=== PATIENT | female | born 1990 | race African-American/Black ===

== ENCOUNTER 2016-10-19 19:10 | Inpatient (IN) | payer OTHER ==
[2016-10-19 20:30] VITALS: BMI 30.4
--- NOTE | 2016-10-19 20:54 | HP ---
Past Medical History - Primary Care Physician PCP:: Stephanie Cornejo - Admission Chief Complaint: 26 yrs , 39.5/7 weeks by sono came by ambulence. onset Lp since 2.00pm History of Present Illness: pnc at , [facility] work Up O pos, Hbsag neg, rpr nr, hiv neg, quantiferon neg, Pngt 79, Gc /ct neg, Gbs neg, [id number](4.5%) pos NT screen not done, quad screen neg MFM growth sono reviewed History Source: Patient, Medical Record Limitations to Obtaining History: No Limitations - Past Medical History ADMISSIONS DEAN: No: CVA, Parkinson's Cardiovascular: No: HTN Pulmonary: Yes: Asthma (last rx 06/12/2015) Gastrointestinal: No: Gastritis Renal/: No: UTI ...: 2 ...Para: 0 ...Induced : 1 (2010) ...LMP: 01/15/16 ... Weeks Gestation by Dates: 39.5 ...EDC by Dates: 10/21/16 ...EDC by Sono: 10/22/16 Heme/Onc: Yes: Anemia Infectious Disease: No: AIDS, HIV, STD's Psych: Yes: Bipolar (in past, no meds) - Past Surgical History Past Surgical History: Yes: None Hx Myomectomy: No Hx Transabdominal Cerclage: No - Smoking History Smoking history: Never smoked - Alcohol/Substance Use Hx Alcohol Use: No History of Substance Use: reports: None Home Medications - Allergies Allergies/Adverse Reactions: Allergies Allergy/AdvReac Type Severity Reaction Status Date / Time shellfish derived Allergy Severe Difficulty Verified 10/19/16 21:00 Breathing sesame seed Allergy Mild Verified 10/19/16 20:55 Physical Exam - Maternity Vital Signs: Vital Signs Temperature Pulse Rate 72 10/19/16 20:30 Respiratory Rate 20 10/19/16 20:30 Blood Pressure 134/84 10/19/16 20:30 O2 Sat by Pulse Oximetry (%) Constitutional: Yes: Well Nourished Eyes: Yes: WNL HENT: Yes: WNL, Normocephalic Neck: Yes: WNL Cardiovascular: Yes: WNL, Regular Rate and Rhythm Lungs: Clear to auscultation Breast(s): Yes: WNL - Abdominal Exam/OB Fundal Height: 38 Number of Fetuses: Single Presentation: Vertex Contractions: Yes Regularity: Irregular (3-7 min) Intensity: Mod/Strong Monitor Mode: External Heart Rate (range): 130 Heart Rate Location: [facility] Category: I Accelerations: Uniform Decelerations: None - Vaginal Exam/OB Vaginal Bleediing: Bloody Show Dilatation (cm): 4-5 Effacement (%): 90 Amniotic Membrane Status: Intact Presentation: Vertex/Position Station: -2 (-2/-1) - Physical Exam Musculoskeletal: Yes: WNL Extremities: Yes: WNL. No: Calf Tenderness Edema: Yes Edema: LLE: 1+, RLE: 1+ Integumentary: Yes: WNL Deep Tendon Reflex Grade: Normal +2 ...Motor Strength: WNL Psychiatric: Yes: WNL, Alert, Oriented - Labs Lab Results: Laboratory Tests 10/19/16 10/19/16 10/19/16 20:10 20:10 20:10 WBC 9.8 Hgb 13.1 Hct 38.8 Plt Count 109 L Neutrophils % 74.9 Lymphocytes % 12.8 Monocytes % 10.3 H Eosinophils % 1.8 INR 0.88 PTT (Actin FS) 27.0 Sodium 138 Potassium 3.7 Chloride 103 Carbon Dioxide 26 BUN 11 Creatinine 0.8 Random Glucose 71 L Calcium 8.7 Problem List - Problems (1) with 39 completed weeks gestation Code(s): Z3A.39 - 39 WEEKS GESTATION OF (2) Labor established Code(s): EDV1077 - Assessment/Plan 26 yrs , 39.5/7 weeks , iup admitted in labor. Gbs neg plan stadol for labor analgesia prn pitocin augmentation prn vaginal delivery trial
[2016-10-19] MEDS ORDERED: BUTORPHANOL TARTRATE 1 MG/ML VIAL IVPB ONE (20:59)
[2016-10-19] MEDS ORDERED: DEXTROSE 5%-LACTATED RINGERS 1,000 ML IV SCH (21:00)
[2016-10-19] MEDS ORDERED: SODIUM PHOSPHATE/NA BIPHOS 133 ML ENEMA PR ONE (21:01)
[2016-10-19 21:13] LABS: BASOPHIL 0.2 % (0-2.0); EOSINOPHIL 1.8 % (0-4.5); MCH 33.3 pg (25.7-33.7); MCHC 33.7 g/dl (32.0-36.0); MEAN CELL VOLUME 98.9 fl (80-96); MEAN PLT VOLUME 12.1 fl (7.5-11.1); NEUTROPHILS 74.9 % (42.8-82.8); PLATELET COUNT 109 K/MM3 (134-434); RDW 12.8 % (11.6-15.6); WHITE BLOOD COUNT 9.8 K/mm3 (4.0-10.0)
[2016-10-19 21:29] LABS: INR 0.88 (0.82-1.09); PROTHROMBIN TIME (PATIENT) 9.7 SEC (9.98-11.88)
[2016-10-19 21:33] LABS: CALCIUM 8.7 mg/dL (8.5-10.1); COCKROFT - GAULT 152.609; CREATININE 0.8 mg/dL (0.55-1.02)
--- NOTE | 2016-10-19 22:42 | PN ---
Progress Note (short form) - Note Progress Note: pt received iv stadol at 10.00pm uc are irreguar, dysfunctional 2-7 min . Fhr 120-130 cat-1 Selected Entries 10/19/16 22:00 Temperature 98.2 F Pulse Rate 62 Blood Pressure 130/62 Pitocin augmentatio Problem List - Problems (1) with 39 completed weeks gestation Code(s): Z3A.39 - 39 WEEKS GESTATION OF (2) Labor established Code(s): MJN8183 -
[2016-10-19] MEDS ORDERED: OXYTOCIN 15 UNITS/ LR 250 ML 250 ML IVPB SCH (22:45)
--- NOTE | 2016-10-20 00:39 | PN ---
Progress Note, Labor Vaginal Exam #1 Labor Exam Date: 10/20/16 Labor Exam Time: 00:30 Heart Rate (range): 120 Dilatation: 8-9 Effacement (%): 100 Amniotic Membrane Status: Intact Presentation: Vertex/Position Station: 0 (0/+1) Remarks: fhr cat-1 Uc 2-4 min pitocin 2 ml/hr Selected Entries 10/19/16 22:00 Temperature 98.2 F Pulse Rate 62 Blood Pressure 130/62 Vaginal Exam #2 Labor Exam Date: 10/20/16 Labor Exam Time: 02:25 Heart Rate (range): 120 Dilatation: 10 Effacement (%): 100 Amniotic Membrane Status: Ruptured (AROM clear , small aount) Presentation: Vertex/Position Station: +2 Remarks: fhr cat-1 uc 2-4 min pt does not have urge to push wait for passive descent before encouraging her to push. 3.00am pt wants to push 10/20/16 02:00 Temperature 98.0 F Pulse Rate 66 Blood Pressure 132/78
[2016-10-20] MEDS ORDERED: BUTORPHANOL TARTRATE 1 MG/ML VIAL IVPUSH PRN (00:52)
[2016-10-20] MEDS ORDERED: BENZOCAINE 28 GM HEMORRHOIDAL OINTMENT TP PRN (04:43)
[2016-10-20] MEDS ORDERED: BENZOCAINE 20% 57 GM BOTTLE TP PRN (04:43)
[2016-10-20] MEDS ORDERED: WITCH HAZEL 50% (TUCKS) 40 PAD/JAR PAD TP PRN (04:43)
[2016-10-20] MEDS ORDERED: METHYLERGONOVINE MALEATE 0.2 MG/1 ML AMP IM PRN (04:43)
[2016-10-20] MEDS ORDERED: BISACODYL 10 MG SUPP.RECT RC PRN (04:43)
[2016-10-20] MEDS ORDERED: oxyCODONE HCL 5 MG TABLET PO PRN (04:43)
--- NOTE | 2016-10-20 04:43 | PN ---
Delivery - Delivery Vaginal Delivery: No Problems, Spontaneous Type of Anesthesia: Local Episiotomy/Laceration: Midline (episiotomy was sutured in layers with chr catgut #2/0 . pr exam mucosa & sphincter was intact bladder cathetrized & emptied) EBL (cc): 300 Delivery, Single - Stages of Labor Date 1st Stage Initiatied: 10/19/16 Time 1st Stage Initiated: 14:00 Date 2nd Stage Initiated: 10/20/16 Time 2nd Stage Initiated: 02:15 Date of Delivery: 10/20/16 Time of Delivery: 03:20 Time Placenta Delivered: 03:25 Placenta: Yes: Spontaneous, Uterine Exploration - Condition of Insecticide Mixer/Mutuel Clerk Present: [place]: Timoteo Maher Infant Gender: Male Weight: 7 lb 9 oz Position: Right, OA Total Hours ROM (Hrs/Mins): 1 hr. 10mins. - 1 Minute Total Score: 9 5 Minutes Total Score: 9 - [place] Feeding Plan Initial Plan: Elected not to breastfeed exclusively throughout hospitalization Remarks - Remarks Remarks: 26 yrs 39.6/7 weeks admitted in labor pnc at [address] [place] [address] gbs neg Iv stadol was given twice for labor analgesia Pitocin augmentation was also given intrapartum course was uneventful.
[2016-10-20] MEDS ORDERED: D5W-LR W/ 20 UNITS OXYTOCIN 1,000 ML IV SCH (04:45)
[2016-10-20] MEDS: ACETAMINOPHEN 325 MG TABLET (FP) PO PRN ×2 (06:40→16:39)
[2016-10-20] MEDS: IBUPROFEN 600 MG TABLET (FP) PO PRN ×2 (06:41→16:40)
[2016-10-20] MEDS: PRENATAL VITAMINS W/ FOLIC ACID TABLET (FP) PO SCH (09:14)
[2016-10-20] MEDS: FERROUS SO4 325 MG TABLET (FP) PO SCH ×2 (09:14→17:22)
[2016-10-20] MEDS ORDERED: PNEUMOC 13-VAL CONJ-DIP CRM/PF 0.5 ML DISP.SYRIN IM ONE (22:00)
--- NOTE | 2016-10-21 05:53 | PN ---
Post Progress Note Post Day: 1 Type of Delivery: Vital Signs: Vital Signs Temperature 98.5 F 10/21/16 02:00 Pulse Rate 69 10/21/16 02:00 Respiratory Rate 20 10/21/16 02:00 Blood Pressure 124/75 10/21/16 02:00 O2 Sat by Pulse Oximetry (%) 100 10/20/16 04:00 Breast Exam: Yes: Soft Uterus: Yes: Fundus Firm Incision: Yes: Dressing dry and intact Abdomen/GI: Yes: Abdomen soft Lochia: Yes: Rubra Lochia, amount: Small Extremities: Yes: Calves non-tender Perineum: Yes: Intact Activity: Ambulating - Labs Labs: CBC WBC 9.8 K/mm3 (4.0-10.0) 10/19/16 20:10 RBC 3.92 M/mm3 (3.60-5.2) 10/19/16 20:10 Hgb 13.1 GM/dL (10.7-15.3) 10/19/16 20:10 Hct 38.8 % (32.4-45.2) 10/19/16 20:10 MCV 98.9 fl (80-96) H 10/19/16 20:10 MCHC 33.7 g/dl (32.0-36.0) 10/19/16 20:10 RDW 12.8 % (11.6-15.6) 10/19/16 20:10 Plt Count 109 K/MM3 (134-434) L 10/19/16 20:10 MPV 12.1 fl (7.5-11.1) H 10/19/16 20:10 Neutrophils % 74.9 % (42.8-82.8) 10/19/16 20:10 Lymphocytes % 12.8 % (8-40) 10/19/16 20:10 Monocytes % 10.3 % (3.8-10.2) H 10/19/16 20:10 Eosinophils % 1.8 % (0-4.5) 10/19/16 20:10 Basophils % 0.2 % (0-2.0) 10/19/16 20:10 Assessment/Plan as above reg diet oob continue care
[2016-10-21 08:30] LABS: BASOPHIL 0.3 % (0-2.0); EOSINOPHIL 2.6 % (0-4.5); MCH 33.8 pg (25.7-33.7); MCHC 34.4 g/dl (32.0-36.0); MEAN CELL VOLUME 98.4 fl (80-96); MEAN PLT VOLUME 10.4 fl (7.5-11.1); NEUTROPHILS 72.8 % (42.8-82.8); PLATELET COUNT 98 K/MM3 (134-434); RDW 12.9 % (11.6-15.6); WHITE BLOOD COUNT 11.6 K/mm3 (4.0-10.0)
[2016-10-21] MEDS: FERROUS SO4 325 MG TABLET (FP) PO SCH ×2 (08:37→17:14)
[2016-10-21] MEDS: ACETAMINOPHEN 325 MG TABLET (FP) PO PRN ×2 (08:38→21:06)
[2016-10-21] MEDS: PRENATAL VITAMINS W/ FOLIC ACID TABLET (FP) PO SCH (09:18)
[2016-10-21] MEDS ORDERED: PNEUMOCOCCAL 23 VACCINE 0.5 ML VIAL IM ONE (10:00)
[2016-10-21] MEDS ORDERED: DIPHTH,PERTUSS(ACELL),TET 0.5 ML DISP.SYRIN IM ONE (10:00)
--- NOTE | 2016-10-21 12:36 | DS ---
Physical Exam-AUTOMOBILE REPOSSESSOR Vital Signs: Vital Signs Temperature 97.8 F 10/21/16 10:00 Pulse Rate 73 10/21/16 10:00 Respiratory Rate 18 10/21/16 10:00 Blood Pressure 125/81 10/21/16 10:00 O2 Sat by Pulse Oximetry (%) 100 10/20/16 04:00 Constitutional: Yes: Well Nourished Eyes: Yes: WNL HENT: Yes: WNL Neck: Yes: WNL Cardiovascular: Yes: WNL Respiratory: Yes: WNL Gastrointestinal: Yes: WNL ...Rectal Exam: Yes: WNL Renal/: Yes: WNL ....Post : Yes: Uterus firm, Uterus non-tender, Moderate lochia rubra ( episiotomy healing well) Breast(s): Yes: WNL (BF, not engorged) Musculoskeletal: Yes: WNL Extremities: Yes: WNL. No: Calf Tenderness Edema: No Integumentary: Yes: WNL Neurological: Yes: WNL, Alert, Oriented ...Motor Strength: WNL Psychiatric: Yes: WNL Labs: CBC, BMP 10/21/16 08:00 10/19/16 20:10 Delivery - Delivery Vaginal Delivery: No Problems, Spontaneous Type of Anesthesia: Local Episiotomy/Laceration: Midline (episiotomy was sutured in layers with chr catgut #2/0 . pr exam mucosa & sphincter was intact bladder cathetrized & emptied) EBL (cc): 300 Delivery, Single - Stages of Labor Date 1st Stage Initiatied: 10/19/16 Time 1st Stage Initiated: 14:00 Date 2nd Stage Initiated: 10/20/16 Time 2nd Stage Initiated: 02:15 Date of Delivery: 10/20/16 Time of Delivery: 03:20 Time Placenta Delivered: 03:25 Placenta: Yes: Spontaneous, Uterine Exploration - Condition of Agricultural Equipment Design Engineer/Recruiting Consultant Present: [place]: Timoteo Maher Gender: Male Weight: 7 lb 9 oz Position: Right, OA Total Hours ROM (Hrs/Mins): 1 hr. 10mins. - 1 Minute Total Score: 9 5 Minutes Total Score: 9 - [place] Feeding Plan Initial Plan: Elected not to breastfeed exclusively throughout hospitalization Remarks - Remarks Remarks: 26 yrs 39.6/7 weeks admitted in labor pnc at [address] [place] [address] gbs neg Iv stadol was given twice for labor analgesia Pitocin augmentation was also given intrapartum course was uneventful. pp course uneventful. pt will be discharged on 10/22/16 Discharge Summary Current Active Problems Labor established (Acute) Normal spontaneous vaginal delivery (Acute) with 39 completed weeks gestation (Acute) Condition: Stable - Instructions Diet, Activity, Other Instructions: Post Instructions DIET: Continue good diet high in protein, calcium, and iron rich foods. Drink at least eight (8) glasses of water daily in addition to other fluids. ct Regular diet _ MEDICATIONS: Continue vitamins and iron as previously directed. Motrin and Tylenol may be taken for minor discomfort. ACTIVITY: Mild to moderate exercise may be started in two (2) weeks. Take frequent rest periods. Resume normal activity after six (6) week check up. WOUND CARE OF OPERATIVE SITE: Continue use of perineal bottle until vaginal discharge stops. Keep area clean. Shower daily. Keep abdominal wound dry. Report any drainage or redness to physician. Tub baths, tampons and douches are not permitted for [address] Breast feeding & or Bottle feeding BREAST CARE: (For those that are not breast feeding): If engorgement occurs: Wear tight fitting bra. Take Tylenol or Motrin for pain. Apply cold packs (ice in bags to each breast ) FAMILY PLANNING: There are many control alternatives to pursue and they should be discussed at your first office visit. You may resume sexual activity after your six (6) week check up. (Remember, breast feeding is not a contraceptive) NEXT PHYSICIAN APPOINTMENT: Be certain to call for a six (6) week appointment, unless otherwise directed. Call Clinic or got to Emergency Dept if you have any of the following: Heavy vaginal bleeding Painful urination Leg pain Unusual odor noted to vaginal bleeding High fever Red streaking noted on breast Referrals: Stephanie Cornejo MD [Staff Physician] - Disposition: HOME - Home Medications Comprehensive Discharge Medication List: Ambulatory Orders Acetaminophen [Tylenol .Regular Strength -] 650 mg PO Q3H PRN #0 tablet Benzocaine [Americaine 20% [place] -] 1 spray TP PRN PRN #0 bottle 10/21/16 Ibuprofen [Motrin -] 200 mg PO Q4H PRN #0 tablet 10/21/16 Vitamins (Sjr) - 1 tab PO DAILY #30 tablet 10/21/16 Witch Chiqui 50% (Tucks) [Tucks Pads -] 1 pad TP PRN PRN #0 pad 10/21/16
[2016-10-21] MEDS: IBUPROFEN 600 MG TABLET (FP) PO PRN (21:05)
[2016-10-21] MEDS ORDERED: SENNOSIDES/DOCUSATE COMBO (SENNA PLUS) TABLET (UD) PO PRN (22:00)
--- NOTE | 2016-10-22 07:26 | PN ---
Progress Note (short form) - Note Progress Note: ppd 2 no c/o voids ok uterus firm, non tender, lochia mild no calf tenderness CBC, BMP 10/21/16 08:00 10/19/16 20:10 Last Vital Signs Temp Pulse Resp BP Pulse Ox 98.9 F 67 18 131/76 100 10/21/16 22:00 10/21/16 22:00 10/21/16 22:00 10/21/16 22:00 10/20/16 04:00 plan d/c home, rtc 4 weeks
[2016-10-22] MEDS: IBUPROFEN 600 MG TABLET (FP) PO PRN (08:18)
[2016-10-22] MEDS: ACETAMINOPHEN 325 MG TABLET (FP) PO PRN (08:18)
[2016-10-22] MEDS: FERROUS SO4 325 MG TABLET (FP) PO SCH (08:18)
[2016-10-22 09:37] VITALS: BP 120/82; PULSE 87; TEMP 98.4
[2016-10-22] MEDS: PRENATAL VITAMINS W/ FOLIC ACID TABLET (FP) PO SCH (10:46)
== END 2016-10-22 13:00 | disposition home or self-care (01) | DRG 560 ==
LOC: JDEL 19:10 → JLDR 19:50 → J3W 10-20 06:22
PROVIDERS: ADMIT Obstetrics & Gynecology; ATTEND Obstetrics & Gynecology
PROC: 0W8NXZZ Division of Female Perineum, External Approach (ICD-10-PCS; principal; 2016-10-20)
PROC: 10E0XZZ Delivery of Products of Conception, External Approach (ICD-10-PCS; 2016-10-20)
DX: O99.02 Anemia complicating childbirth (principal); D64.9 Anemia, unspecified; Z3A.39 39 weeks gestation of pregnancy; Z37.0 Single live birth; O75.89 Other specified complications of labor and delivery; J45.909 Unspecified asthma, uncomplicated
CPT/HCPCS: 36415; 59409; 80048; 85025; 85610; 85730; 86593; 86850; 86900; 86901; 90715; 90732; G0009